=== PATIENT | male | born 1970 | race Hispanic/Latino ===

== ENCOUNTER 2018-03-03 13:18 | Day surgery (SDC) | payer SELFPAY ==
[2018-03-03] MEDS ORDERED: Glycopyrrolate 0.2 MG/ML 5 ML SYRINGE ONE (14:12)
[2018-03-03] MEDS ORDERED: Dexamethasone 20 MG/5 ML VIAL ONE (14:12)
[2018-03-03] MEDS ORDERED: PROPOFOL 200 MG/20 ML VIAL ONE (14:12)
[2018-03-03] MEDS ORDERED: Lidocaine 1% PF 5 ML VIAL ONE (14:12)
[2018-03-03 14:18] LABS: #Lymphocytes 0.9 thou/uL (1.20-3.40); #Neutrophils 11.5 thou/uL (1.40-6.50); %Basophils 0.1 % (0.0-1.0); %Eosinophils 0.1 % (0.0-10.0); %Lymphocytes 6.5 % (21.0-51.0); %Monocytes 7.4 % (0.0-10.0); %Neutrophils 85.9 % (42.0-75.0); Hemoglobin 16.6 g/dL (14.0-18.0); Mean Corpuscular HGB CONC 33.5 g/dL (32.0-36.0); Mean Corpuscular Hemoglobin 29.2 pg (27.0-31.0); Mean Corpuscular Volume 87.2 fL (78.0-98.0); Mean Platelet Volume 9.1 fL (7.4-10.4); Platelet Count 238 thou/uL (130-400); RBC Distribution Width 12.1 % (11.5-14.5); Red Blood Cell (RBC) Count 5.69 mill/uL (4.70-6.10); White Blood Cell (WBC) Count 13.4 thou/uL (4.8-10.8)
[2018-03-03 14:46] LABS: ALT (SGPT) 31 U/L (8-55); AST (SGOT) 28 U/L (5-34); Albumin 4.5 g/dL (3.5-5.0); Alkaline Phosphatase 86 U/L (40-150); Anion Gap 17 mmol/L (10-20); BUN (Urea Nitrogen) 17 mg/dL (8.9-20.6); Bilirubin, Total 2.4 mg/dL (0.2-1.2); Calc. Creatinine Clearance 0 mL/min (70-130); Calcium 9.7 mg/dL (7.8-10.44); Carbon Dioxide 19 mmol/L (22-29); Chloride 103 mmol/L (98-107); Estimated GFR-MDRD Greater than 90; Globulin 4.2 g/dL (2.4-3.5); Glucose 114 mg/dL (70-105); Lipase 18 U/L (8-78); Potassium 4.3 mmol/L (3.5-5.1); Protein, Total 8.7 g/dL (6.0-8.3); Sodium 135 mmol/L (136-145)
--- NOTE | 2018-03-03 15:01 | ULT ---
ULTRASOUND ABDOMEN LIMITED: (RIGHT UPPER QUADRANT) Date: 03/03/18 HISTORY: 47-year-old male with right upper quadrant abdominal pain. FINDINGS: Gallbladder: There is at least one gallstone in the proximal body or neck measuring approximately 14 mm in size. It is uncertain whether this is mobile or not. Normal mural thickness of the gallbladder. No pericholecystic edema. No sonographic Escalona's sign. Common duct: 4 mm. Liver: Normal size and echogenicity. Pancreas: Predominantly obscured by shadowing from bowel gas. Right kidney: No hydronephrosis. IMPRESSION: Positive for cholelithiasis, without sonographic evidence of acute cholecystitis or biliary obstructi on. THERESA Vides POS: [facility]
[2018-03-03] MEDS ORDERED: Morphine 4 MG/ML VIAL ONE (15:23)
[2018-03-03] MEDS ORDERED: Ondansetron PF 4 MG/2 ML Vial ONE (15:25)
[2018-03-03 15:27] LABS: Bilirubin Negative (Negative); Blood, Urine Negative (Negative); Clarity CLEAR (Clear); Glucose, Urine (Dipstick) Negative (Negative); Leukocyte Negative (Negative); Nitrite Negative (Negative); Protein, Urine (Dipstick) 30 mg/dL (Neg-Trace); Specific Gravity, Urine 1.026 (1.002-1.036)
[2018-03-03] MEDS ORDERED: MEROPENEM 1 GM/50 ML 1 GM in Premix Bag 1 BAG IVPB SCH (15:30)
[2018-03-03 15:31] LABS: Bacteria/HPF None Seen HPF (None Seen); Hyaline Casts/LPF 4-6 HYALINE CAST LPF (0-3 Hyaline); Pathc Cast-AUWi Flag 0.14 (0-2.49); RBC/HPF 0-3 HPF (0-3); Squamous Epithelial 0-3 HPF (0-3); WBC/HPF 0-3 HPF (0-3)
[2018-03-03] MEDS ORDERED: Levofloxacin 500 mg/D5W 100 ml Premix Bag ONE (15:37)
[2018-03-03 16:00] LABS: CKMB 1.7 ng/mL (0-6.6); Troponin I Less than 0.010 ng/mL (< 0.028)
[2018-03-03] MEDS ORDERED: Fentanyl 100 MCG/2 ML VIAL ONE (17:05)
[2018-03-03] MEDS ORDERED: Bupivacaine HCl 0.5%/Epinephrine 1:200,000/PF 30 ml Vial ONE (17:18)
[2018-03-03] MEDS ORDERED: Iothalamate Meglumine 60% 50 ML VIAL FS ONE (17:18)
[2018-03-03] MEDS ORDERED: Ketorolac Tromethamine 30 MG/ML VIAL ONE (17:26)
--- NOTE | 2018-03-03 18:09 | RAD ---
FRONTAL VIEW CHEST: INDICATIONS: Preoperative evaluation. Right upper quadrant pain, recent onset. COMPARISON: None. FINDINGS: The lungs are hypoinflated without consolidation or effusion. There is accentuation of the cardiac s ilhouette and pulmonary vasculature. The osseous structures are intact. IMPRESSION: 1. No focal consolidation. 2. Hypoinflated lungs. POS: [facility]
--- NOTE | 2018-03-03 20:15 | RAD ---
OPERATIVE CHOLANGIOGRAM: HISTORY: Intraoperative film. FINDINGS: A single film is presented for interpretation. This shows filling of a nondilated common duct. No f illing defects. There is emptying into the duodenum. IMPRESSION: Unremarkable operative cholangiogram. POS: [facility]
--- NOTE | 2018-03-03 23:58 | OP ---
DATE OF PROCEDURE: 03/03/2018 PREOPERATIVE DIAGNOSES: Acute on chronic cholecystitis, cholelithiasis; elevated bilirubin; normal bile duct caliber. POSTOPERATIVE DIAGNOSES: Acute on chronic cholecystitis, cholelithiasis; elevated bilirubin; normal bile duct caliber. PROCEDURES PERFORMED: Laparoscopic video cholecystectomy, normal cholangiogram using fluoroscopy. ANESTHESIA: General and local with 0.5% Marcaine with epinephrine 30 mL, total mixture was used. DESCRIPTION OF PROCEDURE: The patient was taken to the operating room, where under general anesthesia, abdomen was clipped of hair, prepared with ChloraPrep, draped in routine fashion. Local anesthetic was infiltrated in the skin and subcutaneous tissue about all port sites. An infraumbilical incision was made. Pneumoperitoneum to 15 mmHg was obtained with a Veress needle, replacing with a 5 port and the laparoscope was inserted. A right subxiphoid incision was made, and 11 port placed. A right subcostal incision was made, midclavicular and anterior axillary lines, and 5 port was placed. Fundus of the gallbladder was acutely inflamed. Liver appeared to be normal. Fundus was grasped at the cephalad. Infundibulum was dissected laterally. Cystic artery and duct dissected free. Critical view obtained. Cystic duct was singly clipped on the gallbladder side. The cystic artery was doubly clipped proximally. Opening was made in the cystic duct. Cholangiocatheter was inserted and cholangiogram was obtained using fluoroscopy, revealing free flow of contrast into the duodenum without filling defects in the common hepatic, common bile, and extrahepatic ducts. Cholangiocatheter was removed. Cystic duct was not doubly clipped. Cystic artery and duct divided. Gallbladder was dissected free from the liver bed. We obtained good hemostasis prior to division of the final peritoneal attachments. Gallbladder and contents were removed from its dense attachments. Good hemostasis was obtained with cautery. Gallbladder and stones were removed and submitted to Pathology. Irrigant and pneumoperitoneum were evacuated. Good hemostasis was ensured. All irrigant and pneumoperitoneum evacuated. All instruments were removed and all skin incisions were approximated with interrupted subdermal 4-0 Monocryl and [place] glue applied. Job ID: [id number]
== END 2018-03-03 19:50 | disposition home or self-care (01) ==
LOC: ERS 13:18 → SDC 15:30
PROVIDERS: ATTEND Specialist
PROC: BF121ZZ Fluoroscopy of Gallbladder using Low Osmolar Contrast (ICD-10-PCS; principal; 2018-03-03)
PROC: 0FT44ZZ Resection of Gallbladder, Percutaneous Endoscopic Approach (ICD-10-PCS; principal; 2018-03-03)
DX: K80.12 Calculus of gallbladder with acute and chronic cholecystitis without obstruction (principal)
CPT/HCPCS: 36415; 47532; 71045; 76705; 80053; 81003; 81015; 82550; 82553; 83690; 83880; 84484; 85025; 88304; 93005; 96374; 96375; J0131; J0670; J1100; J1610; J1885; J1956; J2001; J2185; J2270; J2405; J2704; J3010; Q9961